=== PATIENT | female | born 1990 | race American Indian/Alaskan Native ===

== ENCOUNTER 2017-05-15 14:27 | Emergency (ER) | payer MEDICAID ==
[2017-05-15 14:34] VITALS: RESP 16
[2017-05-15] MEDS ORDERED: ONDANSETRON 4 MG/2 ML VIAL IVP ONE (14:46)
[2017-05-15] MEDS ORDERED: NS 1,000 ML IV ONE (14:46)
[2017-05-15 14:57] LABS: % IMMATURE GRANULYOCYTES 0.3 % (0.0-1.1); ABSOLUTE IMMATURE GRANULOCYTES 0.04 10^3/uL (0.00-0.10); ADD DIFF? NO; ADD MORPH? NO; ADD SCAN? NO; ATYPICAL LYMPHOCYTE FLAG 10 (0-99); FRAGMENT RBC FLAG 0 (0-99); HEMATOCRIT 42.9 % (38.0-47.0); HEMOGLOBIN 14.7 g/dL (12.6-16.3); LEFT SHIFT FLG 0 (0-99); LIPEMIA HEMOLYSIS FLAG 90 (0-99); MEAN CELL HEMOGLOBIN 31.4 pg (27.9-34.1); MEAN CELL HEMOGLOBIN CONCENTR. 34.3 g/dL (32.4-36.7); MEAN CELL VOLUME 91.7 fL (81.5-99.8); MEAN PLATELET VOLUME 10.4 fL (8.7-11.7); PLATELET CLUMPS FLAG 10 (0-99); PLATELET COUNT 249 10^3/uL (150-400); RED BLOOD CELL COUNT 4.68 10^6/uL (4.18-5.33); RED CELL DISTRIBUTION WIDTH 13.3 % (11.5-15.2)
[2017-05-15 15:00] LABS: COLOR YELLOW; LEUKOCYTE ESTERASE,URINE NEGATIVE (NEGATIVE); NITRITE,URINE NEGATIVE (NEGATIVE)
[2017-05-15 15:09] LABS: BACTERIA TRACE /hpf (NONE SEEN); MUCUS 3+ /lpf (NONE-1+)
[2017-05-15 15:10] LABS: ALANINE AMINOTRANSFERASE 35 IU/L (9-52); ALBUMIN 4.6 g/dL (3.5-5.0); ALKALINE PHOSPHATASE 64 IU/L (38-126); ANION GAP 15 mEq/L (8-16); ASPARTATE AMINOTRANSFERASE 22 IU/L (14-46); BILIRUBIN,TOTAL 1.2 mg/dL (0.1-1.4); BILIRUBIN-CONJUGATED 0.3 mg/dL (0.0-0.5); BILIRUBIN-UNCONJUGATED 0.9 mg/dL (0.0-1.1); CALCIUM 9.4 mg/dL (8.5-10.4); CARBON DIOXIDE 20 mEq/l (22-31); CHLORIDE 104 mEq/L (97-110); CREATININE 0.7 mg/dL (0.6-1.0); GLOMERULAR FILTRATION RATE > 60; GLUCOSE 120 mg/dL (70-100); POTASSIUM 3.9 mEq/L (3.5-5.2); SODIUM 139 mEq/L (134-144); TOTAL PROTEIN 7.7 g/dL (6.3-8.2)
[2017-05-15 15:10] LABS: RBC,URINE NONE SEEN /hpf (0-3)
--- NOTE | 2017-05-15 15:27 | EDPHY ---
H & P Stated Complaint: R flank & abd pain Source: Patient Exam Limitations: No limitations - Personal History LMP (Females 10-55): 22-28 Days Ago Current Tetanus/Diphtheria Vaccine: Yes Current Tetanus Diphtheria and Acellular Pertussis (TDAP): Yes Tetanus Vaccine Date: May 2015 - Medical/Surgical History Hx Asthma: No Hx Chronic Respiratory Disease: No Hx Diabetes: No Hx Cardiac Disease: No Hx Renal Disease: No Hx Cirrhosis: No Hx Alcoholism: No Hx HIV/AIDS: No Hx Splenectomy or Spleen Trauma: No Other PMH: PE, rt wrist surgery, D&C, viral meningitis - Social History Smoking Status: Former smoker HPI/ROS: CHIEF COMPLAINT: Right-sided abdominal pain HISTORY OF PRESENT ILLNESS: Patient complains of right upper quadrant abdominal pain that started 2 days ago. [id number] symptoms. Worse with palpation and movement. Also worse with intake by mouth. Read as moderate to severe. Associated with nausea with intake by mouth. No fever or chills. No lower abdominal pain. No flank pain. No urinary complaints. No other associated complaints or modifying factors past REVIEW OF SYSTEMS: Ten systems reviewed and are negative unless otherwise noted in the HPI PAST MEDICAL HISTORY: , LMP 22 days ago SOCIAL HISTORY: Nonsmoker, nondiabetic FAMILY HISTORY: Noncontributory EXAMINATION General Appearance: Alert, no distress Head: normocephalic, atraumatic Eyes: Pupils equal and round, no conjunctival pallor or injection ENT, Mouth: Mucous membranes moist Neck: Normal inspection, supple, non-tender Respiratory: Lungs are clear to auscultation Cardiovascular: Regular rate and rhythm Gastrointestinal: Abdomen is soft. Mild right upper quadrant tenderness. No guarding. No tympany. No rigidity. No CVA tenderness. No distention. Nonacute abdomen. Back: non-tender, no bony abnormalities Neurological: A&O, nonfocal, normal gait Skin: Warm and dry, no rash Extremities: Nontender, no pedal edema Psychiatric: Mood and affect normal DIFFERENTIAL DIAGNOSES: Including but not limited to cholecystitis, cholelithiasis, hydronephrosis, renal colic, nephrolithiasis, ureterolithiasis, colitis, diverticulitis, enteritis, gastritis, pancreatitis MDM: 2:45 p.m. Right upper quadrant abdominal pain. This is not necessarily postprandial at all times but is associated with some nausea. She has no flank pain on examination. No urinary complaints. I have ordered laboratory studies and urinalysis. Plan for ultrasound depending on the outcome of the laboratory studies. She has not needed emergent CT scan and she is resting comfortably in no acute distress. 3:15 p.m. Laboratory studies reveal mild leukocytosis. No abnormality the chemistry. I have ordered an ultrasound of the gallbladder at this time. 3:45 p.m. I have re-evaluated the patient. She has had her ultrasound performed and we are awaiting the interpretation by radiologist at this time 4:10 p.m. Notified by radiologist Dr. Lazar. Ultrasound of the gallbladder reveals no acute findings. No hydronephrosis on the ultrasound as well I have re- evaluated the patient. At this time she says her pain is now in the right lower quadrant. She says that she has to lay still for pain to improve. I have thus ordered a CT scan of the abdomen pelvis rule out appendicitis. 4:40 p.m. Notified by radiologist Dr. Lazar CT scan reveals ascending colitis with some edema. No perforation or abscess. 4:50 p.m. I discussed the case with the on-call GI physician Dr. Munroe. We discussed the history, physical exam findings and CT scan findings. Based on our discussion over the phone and without personal examination, he recommends no antibiotics at this time. He recommends conservative therapy with Bentyl, increase hydration, anti-inflammatories. He recommends follow up outpatient for further care. I discussed this with the patient she is comfortable with this plan. She will go home with the above treatment. She is to return here immediately for worsening pain, fever, vomiting or diarrhea. She is comfortable this plan and discharged home stable condition. SUPERVISION: Patient was evaluated in conjunction with the supervising physician. Please see their note for details. (Garrison Powell) Constitutional: Initial Vital Signs Temperature (C) 99.1 F 05/15/17 14:30 Heart Rate 112 H 05/15/17 14:30 Respiratory Rate 16 05/15/17 14:30 Blood Pressure 114/68 05/15/17 14:30 O2 Sat (%) 96 05/15/17 14:30 O2 Delivery Mode Room Air Allergies/Adverse Reactions: No Known Allergies Allergy (Unverified 06/13/16 08:02) Home Medications: Medication Instructions Recorded Acetaminophen [Tylenol 325mg (*)] 325 mg PO Q6 PRN 07/27/16 HYDROmorphone HCL [Dilaudid 2 mg 2 mg PO Q4 PRN 06/13/16 (*)] Ibuprofen [Motrin (*)] 200 mg PO Q6 PRN 06/13/16 oxyCODONE/APAP 5/325 [Percocet 1 - 2 tab PO Q4H PRN 06/13/16 5/325 (*)] Dicyclomine [Bentyl 20 MG (*)] 20 mg PO TID PRN #15 tab 05/15/17 Medical Decision Making Other Provider: The patient was evaluated and managed by the physician phlebotomist lab assistant. I have reviewed this chart and I agree with the findings and plan of care as documented , as indicated by my signature. I am the secondary supervising physician. ( Debbie Wallace) - Data Points Laboratory Results: Laboratory Results 05/15/17 14:30 05/15/17 14:30 Medications Given: Discontinued Medications Sodium Chloride (Ns) 1,000 mls @ 0 mls/hr IV ONCE ONE; Wide Open PRN Reason: Protocol Stop: 05/15/17 14:47 Last Admin: 05/15/17 14:55 Dose: 1,000 mls Ondansetron HCl (Zofran) 4 mg IVP EDNOW ONE Stop: 05/15/17 14:47 Last Admin: 05/15/17 14:56 Dose: 4 mg Departure - Departure Disposition: Home, Routine, Self-Care Clinical Impression: Right upper quadrant abdominal pain, Right lower quadrant pain, Colitis Condition: Good Instructions: Irritable Bowel Syndrome (ED), Ulcerative Colitis (ED), Infectious Colitis (ED), Colitis (ED) Additional Instructions: 1. Follow up with GI physician and primary care physician 2. Bentyl as prescribed as needed 3. Anti-inflammatories [id number] as discussed 4. Return here for any worsening pain, fever, chills, diarrhea or vomiting Referrals: VEENA RAMOS [Other] - As per Instructions Marty Munroe MD [[facility] [place] Primary Care Provider] - As per Instructions Zee Desir MD [Medical Doctor] - As per Instructions Prescriptions: Dicyclomine [Bentyl 20 MG (*)] 20 mg PO TID PRN #15 tab PRN Reason: Pain, Mild
[2017-05-15] MEDS ORDERED: IOPAMIDOL (ISOVUE-300) 100 ML BTL ONE (16:16)
[2017-05-15 17:11] VITALS: BP 115/72; PULSE 81; TEMP 99; O2SAT 97
== END 2017-05-15 17:10 | disposition home or self-care (01) ==
DX: K52.9 Noninfective gastroenteritis and colitis, unspecified (principal); E86.9 Volume depletion, unspecified; Z87.891 Personal history of nicotine dependence
CPT/HCPCS: 96374; J2405; Q9967

== ENCOUNTER 2018-05-20 15:16 | Emergency (ER) | payer MEDICAID ==
[2018-05-20 15:23] VITALS: BP 119/82
--- NOTE | 2018-05-20 15:31 | EDPHY ---
H & P Stated Complaint: horseback riding inj r arm/hx of surgery 2017 on same arm Time Seen by Provider: 05/20/18 15:28 - Personal History LMP (Females 10-55): IUD In Place Current Tetanus Diphtheria and Acellular Pertussis (TDAP): Yes Tetanus Vaccine Date: May 2015 - Medical/Surgical History Hx Asthma: No Hx Chronic Respiratory Disease: No Hx Diabetes: No Hx Cardiac Disease: No Hx Renal Disease: No Hx Cirrhosis: No Hx Alcoholism: No Hx HIV/AIDS: No Hx Splenectomy or Spleen Trauma: No Other PMH: PE, rt wrist surgery, D&C, viral meningitis - Social History Smoking Status: Former smoker Constitutional: Initial Vital Signs Temperature (C) 36.9 C 05/20/18 15:20 Heart Rate 98 05/20/18 15:20 Respiratory Rate 18 05/20/18 15:20 Blood Pressure 119/82 H 05/20/18 15:20 O2 Sat (%) 95 05/20/18 15:20 O2 Delivery Mode Room Air Allergies/Adverse Reactions: No Known Allergies Allergy (Verified 05/20/18 15:19) Home Medications: Medication Instructions Recorded Hydrocodone/APAP 5/325 [[place] 1 - 2 each PO Q4-6PRN PRN #20 tab 05/20/18 5/325] Ibuprofen [Motrin] 800 mg PO Q8 #20 tab 05/20/18 Medical Decision Making ED Course/Re-evaluation: CHIEF COMPLAINT: Right shoulder pain HISTORY OF PRESENT ILLNESS: The patient is a 27 y/o female with a history of right wrist surgery complaining of right shoulder pain. The patient was riding a horse when she started to fall off but caught herself. She was holding the reigns, twisted her right shoulder, and then slammed her right shoulder into her horse. She is unable to lift her right arm or move it across her body. Denies numbness, headache, neck pain, chest pain, shortness of breath, urinary or bowel complaints, fever. REVIEW OF SYSTEMS: A 10 point review of systems was performed and is negative with the exception of the elements mentioned in the history of present illness. PHYSICAL EXAM: HR, BP, O2 Sat, RR. Temp noted General Appearance: Alert, well hydrated, appropriate, and non-toxic appearing. Head: Atraumatic without scalp tenderness or obvious injury Eyes: Pupils equal, round, reactive to light and accommodation, EOMI, no trauma , no injection. Ears: Clear bilaterally, no perforation, normal landmarks Nose: Atraumatic, no rhinorrhea, clear. Throat: There is no erythema or exudates, no lesions, normal tonsils, mucus membranes moist. Neck: Supple, 2+ carotid upstroke, nontender, no lymphadenopathy. Respiratory: No retractions, no distress, no wheezes, and no accessory muscle use. Lungs are clear to auscultation bilaterally. Cardiovascular: Regular rate and rhythm, no murmurs, rubs, or gallops. Bilateral carotid, radial, dorsalis pedis, and posterior tibial pulses intact. Good capillary refill all extremities. Gastrointestinal: Abdomen is soft, nontender, non-distended, no masses, no rebound, no guarding, no peritoneal signs. Musculoskeletal: Right arm pain with internal rotation, positive Near's sign. Neurological: Alert, appropriate, and interactive. The patient has normal DTRs and non-focal cranial nerves, motor, sensory, and cerebellar exam. Skin: No rashes, good turgor, no nodules on palpation. Past medical history: PE, viral meningitis Past surgical history: Right wrist surgery Family history: Denies Social history: Employed as a life trainer, single, lives in [place] DIFFERENTIAL DIAGNOSIS: The differential diagnosis for the patient's shoulder injury included but was not limited to fracture, ligamentous injury, contusion, muscular strain, and rotator cuff injury. MEDICAL DECISION MAKING: The patient is a 27 y/o female with a history of right wrist surgery complaining of right shoulder pain secondary to slamming into her horse today. On exam she has a right rotator cuff injury with a positive Near's sign. Imaging and laboratory studies are not indicated at this time. She will likely need an MRI, but as an outpatient. 1345: Reassessed patient and discussed follow up with Dr. Stewart, orthopedic surgeon, she is comfortable with this plan. I have prescribed her Vicodin and Motrin as well as placed her in a sling. Return precautions provided; patient is comfortable with this plan. Departure - Departure Disposition: Home, Routine, Self-Care Clinical Impression: Shoulder pain Qualifiers: Chronicity: acute Laterality: right Qualified Code(s): M25.511 - Pain in right shoulder Rotator cuff injury Qualifiers: Encounter type: initial encounter Laterality: right Qualified Code(s): S46.001A - Unspecified injury of muscle(s) and tendon(s) of the rotator cuff of right shoulder, initial encounter Condition: Good Instructions: Rotator Cuff Injury (ED), Shoulder Sprain (ED), Shoulder Pain (ED ) Additional Instructions: 1. Rest, ice, elevation. 2. Take Vicodin as prescribed. 3. Take Motrin as prescribed. 4. Follow up with an orthopedic surgeon within one week. 5. Return to the emergency department for worsening pain, swelling, numbness, weakness or other concerns. 6. Wear sling at all times until reevaluation, but okay to shower and sleep without splint. 7. You will likely need an MRI to further evaluate your injury. Referrals: Marty Stewart MD [Medical Doctor] - As per Instructions Prescriptions: Hydrocodone/APAP 5/325 [[place] 5/325] 1 - 2 each PO Q4-6PRN PRN #20 tab PRN Reason: Pain, Moderate Ibuprofen [Motrin] 800 mg PO Q8 #20 tab Report Scribed for: Trent Quintana Report Scribed by: Cassie Cabrera Date of Report: 05/20/18 Time of Report: 15:32
== END 2018-05-20 15:59 | disposition home or self-care (01) ==
DX: S46.001A Unspecified injury of muscle(s) and tendon(s) of the rotator cuff of right shoulder, initial encounter (principal); Z87.891 Personal history of nicotine dependence; W23.0XXA Caught, crushed, jammed, or pinched between moving objects, initial encounter; Y99.8 Other external cause status; Y93.52 Activity, horseback riding
CPT/HCPCS: A4565

== ENCOUNTER → 2018-07-18 | Outpatient (CLI) | payer MEDICAID | LOC: FIMAGING 19:33 | PROVIDERS: ATTEND Orthopaedic Surgery Foot and Ankle Surgery | DX: M25.811 Other specified joint disorders, right shoulder (principal) ==

== ENCOUNTER → 2018-11-27 | Outpatient (CLI) | payer MEDICAID | LOC: FIMAGING 19:31 | PROVIDERS: ATTEND Orthopaedic Surgery | DX: M25.511 Pain in right shoulder (principal); M25.811 Other specified joint disorders, right shoulder ==